=== PATIENT | female | born 1960 | race Caucasian/White ===

== ENCOUNTER 2017-01-10 15:32 | Inpatient (IN) | payer OTHER ==
[~2017-01-10] VITALS: Wt 59.6 kg
[~2017-01-10 15:32] MED LIST: ASPI325T6 PO; GLUCOPHAGE1000 MG PO; LANTUS100 U/ML SC; LIPITOR20 MG PO; NEURONTIN300 MG/CAP PO; PLAVIX 75MG TAB75 MG PO; PRIL40 PO; PRINIVIL10 MG PO; XALATAN EYE DROPS OD
[2017-01-10] MEDS ORDERED: COLACE 100100 MG/CAP PO (15:50)
[2017-01-10] MEDS ORDERED: NEXIUM 20MG20 MG PO (15:51)
[2017-01-10 15:53] VITALS: BP 141/66; PULSE 99; TEMP 97.4
[2017-01-10] MEDS ORDERED: NOVOLOG FLEX100 U/ML SQ (15:53)
[2017-01-10] MEDS ORDERED: LANTUS SOLOS100 U/ML SQ (15:53)
[2017-01-10] MEDS ORDERED: NEURONTIN600 MG/TAB PO (16:04)
[2017-01-10] MEDS ORDERED: ROBAXIN 50500 MG/TAB PO (16:05)
[2017-01-10] MEDS ORDERED: LIPITOR 40MG TA40 MG PO (16:07)
[2017-01-10] MEDS ORDERED: LIDODERM 5% PATC1 EA TP (16:07)
[2017-01-10] MEDS ORDERED: MASON NATURAL1000 MG PO (16:09)
[2017-01-10 18:03] VITALS: BP 139/68; PULSE 98; TEMP 97.8
[2017-01-10 18:58] VITALS: BP 154/74; PULSE 96; TEMP 97.6
[2017-01-10 21:00] VITALS: BP 114/72; PULSE 95; TEMP 98.3
[2017-01-10 23:43] VITALS: BP 122/70; PULSE 92; TEMP 98.1
[2017-01-11 04:03] VITALS: BP 124/69; PULSE 88; TEMP 97.9
[2017-01-11 07:17] LABS: BASO % 0.4 % (0.0-2.0); EOS # 0.5 (0.0-0.7); EOS % 4.3 % (0-4.0); GRAN # 6.3 (1.4-6.5); GRAN % 55.7 % (42.2-75.2); HEMATOCRIT 40.9 % (37.0-47.0); HEMOGLOBIN 13.2 g/dl (12.5-16.0); LYMPH # 3.6 (1.2-3.4); LYMPH % 31.6 % (20.0-51.0); MEAN CELL VOLUME 86 fl (80.0-100.0); MEAN CORPUSCULAR HEMOGLOBIN 28 pg (27.0-31.0); MEAN CORPUSCULAR HGB CONC 32 g/dl (33.0-37.0); MEAN PLATELET VOLUME 10.6 fl (7.4-10.4); MONO # 0.9 (0.1-0.6); MONO % 7.7 % (1.7-9.3); PLATELET COUNT 276 K/mm3 (130-400); RED BLOOD COUNT 4.74 M/mm3 (4.10-5.30); REDCELL DISTRIBUTION WIDTH-CV 12.6 % (11.5-14.5); WHITE BLOOD COUNT 11.3 K/mm3 (4.8-10.8)
[2017-01-11 07:24] LABS: CALCIUM 9.2 mg/dL (8.4-10.2); CREATININE, serum 0.73 mg/dL (0.52-1.25); POTASSIUM 3.6 mmol/L (3.4-5.0)
[2017-01-11 08:33] VITALS: BP 122/61; PULSE 96; TEMP 98.6
[2017-01-11 09:34] LABS: PH 5 (5-8); SQUAMOUS EPITHELIAL 0-2 /hpf; URINE APPEARANCE Hazy; URINE BACTERIA None Seen /hpf; URINE BILIRUBIN Negative (NEGATIVE); URINE BLOOD Negative (NEGATIVE); URINE COLOR Yellow; URINE GLUCOSE Negative (NEGATIVE); URINE KETONE Negative (NEGATIVE); URINE UROBILINOGEN Negative (NEGATIVE); URINE WBC 20-50 /hpf
[2017-01-11 13:04] VITALS: BP 106/65; PULSE 95; TEMP 98.9
[2017-01-11 16:00] VITALS: BP 107/52; PULSE 92; TEMP 98
[2017-01-11] MEDS ORDERED: PLAVIX 75MG TAB75 MG PO (16:30)
== END 2017-01-11 18:15 | disposition home or self-care (01) | DRG 65 ==
LOC: MEDICAL 15:32
PROVIDERS: Family Medicine
DX: I63.8 Other cerebral infarction (principal); I69.354 Hemiplegia and hemiparesis following cerebral infarction affecting left non-dominant side; R47.81 Slurred speech; R41.89 Other symptoms and signs involving cognitive functions and awareness; I10 Essential (primary) hypertension; E11.65 Type 2 diabetes mellitus with hyperglycemia; G89.29 Other chronic pain; Z79.4 Long term (current) use of insulin
CPT/HCPCS: 99222-AI; 99239; J1650; J1815

== ENCOUNTER 2017-04-02 06:01 | Day surgery (SDC) | payer OTHER ==
[~2017-04-02] VITALS: Ht 162.6 cm; Wt 63.4 kg
[~2017-04-02 06:01] MED LIST changes: +COLACE 100100 MG/CAP PO; +LANTUS SOLOS100 U/ML SQ; +LIDODERM 5% PATC1 EA TP; +LIPITOR 40MG TA40 MG PO; +MASON NATURAL1000 MG PO; +NEURONTIN600 MG/TAB PO; +NEXIUM 20MG20 MG PO; +NOVOLOG FLEX100 U/ML SQ; +ROBAXIN 50500 MG/TAB PO
[2017-04-02] MEDS ORDERED: ASPIRIN 32325 MG/TAB PO (06:52)
[2017-04-02] MEDS ORDERED: PRILOSEC 20MG20 MG PO (06:53)
[2017-04-02] MEDS ORDERED: LIPITOR 80MG80 MG PO (06:53)
[2017-04-02] MEDS ORDERED: PRINIVIL10 MG PO (06:53)
[2017-04-02] MEDS ORDERED: GLUCOPHAGE1000 MG PO (06:54)
[2017-04-02] MEDS ORDERED: LANTUS100 U/ML SQ (06:55)
[2017-04-02] MEDS ORDERED: NOVOLOG 100U100 U/M1 SQ (06:56)
[2017-04-02] MEDS ORDERED: JANUVIA 100MG100 MG PO (06:59)
[2017-04-02] MEDS ORDERED: NEURONTIN600 MG/TAB PO (07:05)
[2017-04-02] MEDS ORDERED: XALATAN EYE DROPS OD (07:06)
[2017-04-02] MEDS ORDERED: LIDODERM 5% PATC1 EA TP (07:08)
[2017-04-02] MEDS ORDERED: PLAVIX 75MG TAB75 MG PO (07:09)
[2017-04-02 07:30] VITALS: BP 106/57; PULSE 95; TEMP 97.9
[2017-04-02 07:45] VITALS: BP 127/62; PULSE 106; TEMP 97.7
[2017-04-02 08:02] VITALS: BP 127/62; PULSE 104; TEMP 97.7
[2017-04-02 08:10] VITALS: BP 108/61; PULSE 88; TEMP 98
[2017-04-02 14:30] VITALS: BP 106/72; PULSE 86
== END 2017-04-02 08:30 | disposition home or self-care (01) ==
LOC: SDCO 06:01
DX: D12.5 Benign neoplasm of sigmoid colon (principal); E11.9 Type 2 diabetes mellitus without complications; R19.7 Diarrhea, unspecified; Z86.73 Personal history of transient ischemic attack (TIA), and cerebral infarction without residual deficits; Z79.84 Long term (current) use of oral hypoglycemic drugs; Z79.4 Long term (current) use of insulin; Z90.49 Acquired absence of other specified parts of digestive tract; Z90.710 Acquired absence of both cervix and uterus
CPT/HCPCS: J2250; J2405; J3010; J7030

== ENCOUNTER 2021-09-09 12:20 | Day surgery (SDC) | payer MEDICARE, OTHER ==
[~2021-09-09] VITALS: Ht 162.6 cm; Wt 65.7 kg
[~2021-09-09 12:20] MED LIST changes: +ASPIRIN 32325 MG/TAB PO; +CLEOCIN HCL300 MG PO; +COLESTID 1GM1 G PO; +COREG 3.123.125 MG/T PO; +CRESTOR40 MG PO; +CYMBALTA 60MG60 MG PO; +JANUVIA 100MG100 MG PO; +JARDIANCE25 PO; +LANTUS100 U/ML SQ; +LIPITOR 80MG80 MG PO; +NOVOLOG 100U100 U/M1 SQ; +PRILOSEC 20MG20 MG PO; +PROTONIX 40MG T40 MG PO
--- NOTE | 2021-09-09 12:50 | NUR ---
PATIENT ARRIVED PER WHEEL CHAIR BEING PUSHED BY . PATIENT IS ABLE TO STAND BUT NOT STEADY WHEN WALKING. PATIENT IS ALERT AND ORIENTED X3. PATIENT DOES HAVE TROUBLE SAYING WHAT SHE NEEDS TO SAY DUE TO HISTORY OF STROKE. CONSENT EXPLAINED AND PATIENT SIGNED. ASSESSMENT COMPLETED. LUNG CTA. HEART S1S2 AND REGULAR. BOWEL SOUNDS HEARD. PEDAL PULSES +1. SEE IV START ON PROCESS INTERVENTION.
[2021-09-09] MEDS ORDERED: PRILOSEC 20MG20 MG PO (13:25)
[2021-09-09] MEDS ORDERED: VESICARE10 MG PO (13:26)
[2021-09-09 13:56] VITALS: BP 131/61; PULSE 94; TEMP 98.3
--- NOTE | 2021-09-09 16:20 | NUR ---
PATIENT TRANSPORTED PER CART FROM OR TO BAY 4 ACCOMPANIED BY OR STAFF. MONITORS APPLIED. VSS ON ROOM AIR. PATIENT TALKS WITH STAFF. RETURNED TO ROOM. VERBAL REPORT RECEIVED. TALKS WITH STAFF. INTERSTIM REPRESENTIVE IN ROOM. REP TALKS WITH PATIENT AND .
[2021-09-09 16:21] VITALS: BP 127/44; PULSE 84; TEMP 98.3
[2021-09-09 16:30] VITALS: BP 133/56; PULSE 65
--- NOTE | 2021-09-09 16:30 | NUR ---
VSS ON ROOM AIR. REP CONTINUES TALKSING WITH PATIENT AND .
[2021-09-09 16:45] VITALS: BP 134/60; PULSE 80
--- NOTE | 2021-09-09 16:45 | NUR ---
VSS ON ROOM AIR. PATIENT ALERT AND TALKING DENIES DISCOMFORT AND NAUSEA. PATIENT GIVEN MUFFIN AND APPLE JUICE.
[2021-09-09 17:00] VITALS: BP 123/68; PULSE 82
--- NOTE | 2021-09-09 17:00 | NUR ---
VSS ON ROOM AIR. IV DC'D WITH CATHETER TIP INTACT. PRESSURE AND BANDAGE APPLIED. DISCHARGE INSTRUCTIONS GIVEN VERBAL AND DISCHARGE PACKET PROVIDED. QUESTIONS ANSWERED AND PATIENT AND VOICED UNDERSTANDING. PATIENT ASSISTED WITH GETTING DRESSED. BATTERY PACKET ATTACHED TO PATIENT WAIST PER BELT. 1710 PATIENT DISCHARGED PER WHEEL CHAIR ACCOMPANIED BY AMB RN TO PRIVATE VECHILE DRIVEN BY .
== END 2021-09-09 17:20 | disposition home or self-care (01) ==
LOC: SDCO 12:20
DX: N39.41 Urge incontinence (principal); N39.46 Mixed incontinence; R39.14 Feeling of incomplete bladder emptying; E11.9 Type 2 diabetes mellitus without complications; I11.0 Hypertensive heart disease with heart failure; I50.9 Heart failure, unspecified; I25.10 Atherosclerotic heart disease of native coronary artery without angina pectoris; I25.2 Old myocardial infarction; E78.2 Mixed hyperlipidemia; Z79.02 Long term (current) use of antithrombotics/antiplatelets; Z86.73 Personal history of transient ischemic attack (TIA), and cerebral infarction without residual deficits; Z99.89 Dependence on other enabling machines and devices; Z79.4 Long term (current) use of insulin; Z79.899 Other long term (current) drug therapy; Z79.82 Long term (current) use of aspirin; Z86.16 Personal history of COVID-19; Z79.84 Long term (current) use of oral hypoglycemic drugs; Z95.810 Presence of automatic (implantable) cardiac defibrillator; Z95.1 Presence of aortocoronary bypass graft
CPT/HCPCS: C1787; C1883; J3370; J7030; J7050

== ENCOUNTER 2021-10-15 09:39 | Day surgery (SDC) | payer MEDICARE, OTHER ==
[~2021-10-15] VITALS: Ht 162.6 cm; Wt 64.2 kg
[~2021-10-15 09:39] MED LIST changes: +VESICARE10 MG PO
[2021-10-15] MEDS ORDERED: ASPIRIN 32325 MG/TAB PO (11:38)
[2021-10-15] MEDS ORDERED: ASPIRIN 81M81 MG/TA2 PO (11:39)
[2021-10-15] MEDS ORDERED: GLUCOPHAGE500 MG/TAB PO (11:42)
[2021-10-15] MEDS ORDERED: NEURONTIN300 MG/CAP PO (11:46)
[2021-10-15] MEDS ORDERED: LIPITOR 80MG80 MG PO (11:48)
[2021-10-15] MEDS ORDERED: COLESTID 1GM1 G PO (11:49)
[2021-10-15] MEDS ORDERED: JANUVIA 100MG100 MG PO (11:59)
[2021-10-15 12:07] VITALS: BP 114/86; PULSE 85; TEMP 97.9
[2021-10-15 13:09] VITALS: BP 137/64; PULSE 86; TEMP 97.5
[2021-10-15 14:30] VITALS: BP 112/58; PULSE 86
--- NOTE | 2021-10-15 14:37 | NUR ---
1309 Pt returns from procedure via cart and RN assist to [facility] [place]. Monitors on and alarms set. Call light within reach. Report received from SD Borden, and BARBARA Olivera. Pt alert and oriented. present in room. Pt requests juice and muffin. Pt denies any pain or nausea. 1320 Pt taking food and drink well. No complications noted. 1420 Discharge instructions given to pt and . All questions answered to their satisfaction. Handed to pt are a thank you card and discharge information. Pt already has a follow-up appt scheduled for Oct.23 at 11:30. Pt and understand that Jorge L, the interstim rep, will call them tonight with updates on the new interstim. At this point, it is noted that the vitals machine had not been circulating the BP. Vitals checked again with all of them being stable as preop. 1437 Pt transferred out of the hospital via wheelchair and this RN assist, to private vehicle driven by pt's .
== END 2021-10-15 14:37 | disposition home or self-care (01) ==
LOC: SDCO 09:39
DX: N39.46 Mixed incontinence (principal); R35.0 Frequency of micturition; R39.15 Urgency of urination; I25.10 Atherosclerotic heart disease of native coronary artery without angina pectoris; E11.39 Type 2 diabetes mellitus with other diabetic ophthalmic complication; H42 Glaucoma in diseases classified elsewhere; G47.33 Obstructive sleep apnea (adult) (pediatric); Z86.16 Personal history of COVID-19; E78.5 Hyperlipidemia, unspecified; K21.9 Gastro-esophageal reflux disease without esophagitis; E78.00 Pure hypercholesterolemia, unspecified; I25.5 Ischemic cardiomyopathy; I69.334 Monoplegia of upper limb following cerebral infarction affecting left non-dominant side; I11.0 Hypertensive heart disease with heart failure; I25.2 Old myocardial infarction; I50.9 Heart failure, unspecified; Z95.1 Presence of aortocoronary bypass graft; Z95.810 Presence of automatic (implantable) cardiac defibrillator; Z95.818 Presence of other cardiac implants and grafts; Z79.82 Long term (current) use of aspirin; Z79.899 Other long term (current) drug therapy; Z79.84 Long term (current) use of oral hypoglycemic drugs; Z79.4 Long term (current) use of insulin; Z79.02 Long term (current) use of antithrombotics/antiplatelets
CPT/HCPCS: C1767; C1787; J0690; J2405; J2704; J3010; J3370; J7030; J7050

== ENCOUNTER → 2021-12-11 | Outpatient (CLI) | payer MEDICARE, OTHER ==
[~2021-12-11] MED LIST changes: +ASPIRIN 81M81 MG/TA2 PO; +GLUCOPHAGE500 MG/TAB PO
== END ==
LOC: COL.RAD 13:13
DX: I63.9 Cerebral infarction, unspecified (principal)
CPT/HCPCS: A9575

== ENCOUNTER → 2022-04-15 | Outpatient (CLI) | payer MEDICARE, OTHER | LOC: COL.CARD 09:27 | DX: I63.9 Cerebral infarction, unspecified (principal) ==